=== PATIENT | female | born 2000 | race Caucasian/White ===

== ENCOUNTER 2024-02-21 12:16 | Emergency (ER) | payer BC ==
[~2024-02-21] VITALS: Ht 175.3 cm; Wt 96.4 kg
[2024-02-21 12:17] VITALS: BP 126/69; TEMP 98.2; O2SAT 100
== END 2024-02-21 15:23 | disposition left against medical advice (07) ==
LOC: M ED 12:16
DX: Z53.21 Procedure and treatment not carried out due to patient leaving prior to being seen by health care provider (principal)